=== PATIENT | male | born 1965 | race Caucasian/White ===

== ENCOUNTER 2021-09-08 15:05 | Emergency (ER) | payer OTHER, MEDICAID, SELFPAY ==
[~2021-09-08] VITALS: Ht 175.3 cm; Wt 113.4 kg
[2021-09-08 15:05] VITALS: BP_SYST 130
--- NOTE | 2021-09-08 15:05 | NUR ---
Placed in room 06 . Placed on cardiac nurse, blood pressure machine and pulse oximeter. To gown for exam. Side rails up. Report given to NNAMDI BARTLETT
--- NOTE | 2021-09-08 15:25 | NUR ---
RECEIVED REPORT FROM RN, PATIENT IS ON GURNEY YELLING AND CRYING. 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 PATIENT IS ALSO SCREAMING THAT HE HAS HAD CHEST PAIN FOR 5 YEARS.
--- NOTE | 2021-09-08 15:28 | NUR ---
AT BEDSIDE FOR ASSESSMENT. PATIENT IS YELLING THAT HE NEEDS TO GO TO A MENTAL FACILITY. DR WILL PUT IN MEDICATION ORDERS.
--- NOTE | 2021-09-08 15:41 | NUR ---
Swabbed for LIYA. Sent to the lab.
[2021-09-08] MEDS ORDERED: LORazepam 2 MG/ML VIAL IVP ONE (15:45)
[2021-09-08 15:51] LABS: BASOPHILS # (AUTO) 0.1 K/uL (0.0-0.2); BASOPHILS % (AUTO) 1.3 % (0.0-2.0); EOSINOPHILS % (AUTO) 0.8 % (0.0-4.0); HEMATOCRIT 47.5 % (36-54); HEMOGLOBIN 16.2 g/dL (14.0-18.0); LYMPHOCYTES # (AUTO) 1.8 K/uL (1.0-5.5); LYMPHOCYTES % (AUTO) 37.3 % (20.5-51.5); MEAN CORPUSCULAR HEMOGLOBIN 32 pg (27-31); MEAN CORPUSCULAR HGB CONC 34 % (32-36); MEAN CORPUSCULAR VOLUME 93 fL (79.0-98.0); MONOCYTES # (AUTO) 0.8 K/uL (0.0-1.0); MONOCYTES % (AUTO) 15.9 % (1.7-9.3); NEUTROPHILS # (AUTO) 2.2 K/uL (1.8-7.7); NEUTROPHILS % (AUTO) 44.7 % (40.0-70.0); PLATELET COUNT (AUTO) 207 K/uL (130-430); RED CELL DISTRIBUTION WIDTH 13.5 % (9.0-15.0); WHITE BLOOD COUNT (AUTO) 4.9 K/uL (4.8-10.8)
[2021-09-08] MEDS ORDERED: DIPHENHYDRAMINE INJ 50 MG/ML VIAL ONE (16:14)
[2021-09-08] MEDS ORDERED: HALOPERIDOL LACTATE 5 MG/ML VIAL ONE (16:14)
[2021-09-08 16:32] LABS: CALCIUM 8.8 mg/dL (8.4-11.0); CREATININE 1.07 mg/dL (0.55-1.30); POTASSIUM 3.5 mmol/L (3.5-5.1)
[2021-09-08 16:36] LABS: ALBUMIN 3.8 g/dL (3.4-4.8); TOTAL BILIRUBIN 0.2 mg/dL (0.0-1.0)
[2021-09-08] MEDS ORDERED: HALOPERIDOL LACTATE 5 MG/ML VIAL IVP ONE (17:00)
[2021-09-08] MEDS ORDERED: DIPHENHYDRAMINE INJ 50 MG/ML VIAL IVP ONE (17:00)
--- NOTE | 2021-09-08 19:30 | NUR ---
patient in bed, comfortable, warm blanket provided per request, no other needs requested, denies pain or discomfort at this time.
[2021-09-08 19:31] LABS: BENZODIAZEPINE, URINE POSITIVE (NEG <=150); UR TRICYCLIC ANTIDEPRESSANTS POSITIVE (NEG <=300)
[2021-09-08 19:32] LABS: BARBITURATE, URINE NEGATIVE (NEG <=200); CANNABINOID, URINE NEGATIVE (NEG <=50); COCAINE, URINE NEGATIVE (NEG <=150); METHAMPHETAMINES SCREEN,URINE NEGATIVE (NEG <=500); OPIATE, URINE NEGATIVE (NEG <=100); PHENCYCLIDINE SCREEN,URINE NEGATIVE (NEG <=25); URINE AMPHETAMINE NEGATIVE (NEG <=500); URINE METHADONE NEGATIVE (NEG <=200); URINE OXYCODONE SCREEN NEGATIVE (NEG <=100); URINE PROPOXYPHENE SCREEN NEGATIVE (NEG <=300)
--- NOTE | 2021-09-08 21:10 | NUR ---
Evaluated by md, denies si, denies any pain or discomfort, all needs attended.
--- NOTE | 2021-09-08 21:40 | NUR ---
patient denies suicidal ideation, denies hurting self or others. telephoned brother to pick him up from the ER. cooperative, not in distress, [id number], ambulatory.
--- NOTE | 2021-09-08 21:42 | NUR ---
IV line discontinued.
[2021-09-08 21:50] VITALS: BP_SYST 120
== END 2021-09-08 21:50 | disposition home or self-care (01) ==
LOC: SED 15:05
DX: R45.1 Restlessness and agitation (principal); R07.89 Other chest pain; F10.129 Alcohol abuse with intoxication, unspecified; F39 Unspecified mood [affective] disorder; Y90.7 Blood alcohol level of 200-239 mg/100 ml; Z20.822 Contact with and (suspected) exposure to COVID-19
CPT/HCPCS: 36415; 71045; 80053; 80307; 83690; 83880; 84484; 85025; 87426; 93005; 96374; 96375; 99291; G0482; J1200; J1630; J2060